=== PATIENT | male | born 1995 | race Two or more races ===

== ENCOUNTER 2016-10-20 18:27 | Emergency (ER) | payer OTHER ==
[~2016-10-20] VITALS: Ht 170.2 cm; Wt 60.8 kg
[2016-10-20 18:27] VITALS: BP 124/65
[2016-10-20] MEDS ORDERED: LIDOCAINE 2% 50 ML MDV IJ ONE (19:10)
[2016-10-20] MEDS ORDERED: TDAP [DIPH/PERTUSSIS/TET] 0.5 ML VIAL IM ONE ×2 (19:30→19:33)
[2016-10-20] MEDS ORDERED: LIDOCAINE 2% 20 ML MDV TP ONE (19:30)
== END 2016-10-20 20:58 ==
LOC: ER 18:33
DX: M79.89 Other specified soft tissue disorders (principal); F17.210 Nicotine dependence, cigarettes, uncomplicated
CPT/HCPCS: 73120; 90471; 90715; 99284; A4606; J3490; Z7610